=== PATIENT | female | born 1945 | race Caucasian/White ===

== ENCOUNTER → 2018-10-12 09:23 | Outpatient (CLI) | payer MEDICARE, SELFPAY ==
--- NOTE | 2018-10-12 | DI.US.S_ITS ---
PROCEDURE: US THYROID INDICATIONS: NONTOXIC MULTINODULAR GOITER TECHNIQUE: Real-time scanning was performed of the thyroid gland, with image documentation. COMPARISON: [facility], US, BIOPSY LOCALIZATION/ASPIRATION, 05/02/2013, 14:32. [facility], US, BIOPSY LOCALIZATION/ASPIRATION, 05/02/2013, 15:06. [facility], US, THYROID, 02/11/2016, 11:14. [facility], [place], THYROID, 03/09/2017, 10:28. FINDINGS: Right: Thyroid lobe measures 6.1 x 3.3 x 2.7 cm, and is diffusely heterogeneous in echotexture. Left: Thyroid lobe measures 6.2 x 2.5 x 1.9 cm, and is diffusely heterogeneous in echotexture. Isthmus: 0.6 cm thick. Nodule number: 1 Location: Mid right thyroid lobe Size: 1.9 x 0.5 x 1.1 cm. This was likely present on the prior studies but is slightly more defined on the current study. Composition: Solid Echogenicity: Isoechoic Shape: Wider than tall. Margins: Smooth Echogenic foci: None. Total points: 3 ACR TI-RADS category: 3: Mildly suspicious. Nodule number: 2 Location: Inferior right lobe Size: 2.9 x 2.0 x 2.4 cm. stable in size. Composition: Solid Echogenicity: Isoechoic Shape: Wider than tall. Margins: Smooth. Echogenic foci: None. Total points: 3 ACR TI-RADS category: 3: Mildly suspicious. This was previously biopsied with benign findings. Nodule number: 3 Location: Superior right lobe. Size: 1.5 x 0.9 x 1.2 cm. Composition: Cystic and solid Echogenicity: Isoechoic Shape: Wider than tall Margins: Smooth Echogenic foci: None. Total points: 2 ACR TI-RADS category: 2: Not suspicious. Nodule number: 4 at Location: Superior left lobe Size: 1.6 x 1.0 x 1.0 cm. similar in size to the prior study. Composition: Solid Echogenicity: Isoechoic Shape: Wider than tall. Margins: Smooth Echogenic foci: None. Total points: 3 ACR TI-RADS category: 3: Mildly suspicious. 2 additional stable left thyroid nodules also demonstrated consistent with TI-RADS 3 and 2. IMPRESSION: 1. Bilateral heterogeneous enlarged thyroid with multiple nodules consistent with multinodular goiter. 2. Overall stable appearance of the bilateral nodules compared to the prior studies including the 2 previously biopsied nodules on each side. A right midpole nodule is slightly more defined on the current study but was likely present on the prior studies. Followup may be performed to demonstrate five-year stability. ACR TI-RADS definitions and recommendations: TI-RADS 1 (benign): 0 points. FNA not needed. TI-RADS 2 (not suspicious): 2 points. FNA not needed. TI-RADS 3 (mildly suspicious): 3 points. * FNA if 2.5 cm or larger, follow up if 1.5 cm or larger (at 1, 3, and 5 years). TI-RADS 4 (moderately suspicious): 4-6 points. * FNA if 1.5 cm or larger, follow up if 1 cm or larger (at 1, 2, 3, and 5 years). TI-RADS 5 (highly suspicious): 7 points or more. Dictated by: Cesar Moon M.D. on 10/12/2018 at 17:03 Approved by: Cesar Moon M.D. on 10/12/2018 at 17:16
== END ==
PROVIDERS: PCP Physician Assistant; Visit Provider Internal Medicine Endocrinology, Diabetes & Metabolism
DX: E04.2 Nontoxic multinodular goiter (principal)
CPT/HCPCS: 76536

== ENCOUNTER → 2018-10-23 16:00 | Outpatient (CLI) | payer MEDICARE, SELFPAY ==
[2018-10-23 17:00] LABS: Alanine Aminotransferase 30 IU/L (9-52); Albumin 4.5 g/dL (3.5-5.0); Albumin Globulin Ratio 1.4 (1.0-2.8); Alkaline Phosphatase 95 U/L (38-126); Aspartate Aminotransferase 25 IU/L (14-36); BUN Creatinine Ratio 22.2 (6-22); Bilirubin Total 0.2 mg/dL (0.2-1.3); Blood Urea Nitrogen 20 mg/dL (7-17); Calcium 9.9 mg/dL (8.4-10.2); Carbon Dioxide 25 mmol/L (22-32); Chloride 104 mmol/L (98-107); Estimated Glomerular Filt Rate > 60.0 mL/min (>60); Globulin 3.3 g/dL (1.7-4.1); Glucose 97 mg/dL (80-110); HEMOLYSIS < 15 (0-50); Potassium 4.5 mmol/L (3.4-5.1); Sodium 141 mmol/L (137-145); Total Protein 7.8 g/dL (6.3-8.2)
[2018-10-25 15:39] LABS: Parathyroid Hormone Int 71 pg/mL (14-64)
[2018-10-25 15:58] LABS: Ionized Calcium 5.2 mg/dL (4.8-5.6)
== END ==
PROVIDERS: PCP Physician Assistant; Visit Provider Physician Assistant
DX: E83.52 Hypercalcemia (principal)
CPT/HCPCS: 36415; 80053; 82330; 83970

== ENCOUNTER 2021-06-19 12:27 | Emergency (ER) | payer MEDICARE, SELFPAY ==
[2021-06-19 12:43] VITALS: BP 189/79; PULSE 67; RESP 18; O2SAT 97; BMI 28.3
--- NOTE | 2021-06-19 12:49 | DI.RAD.S_ITS ---
PROCEDURE: XR WRIST LT MIN 3V INDICATIONS: FOOSH, left volar wrist pain TECHNIQUE: 4 views of the wrist were acquired. COMPARISON: None. FINDINGS: Bones: There is a mildly impacted, comminuted fracture of the distal radius. There is slight ventral angulation of the dorsal fragment. Fracture lucencies do appear to extend to the articular surface. Scaphoid view: No visualized scaphoid fracture. Soft tissues: No suspicious soft tissue calcifications. IMPRESSION: Mildly impacted distal radial fracture with angulation as above. Dictated by: Denise Munoz M.D. on 06/19/2021 at 13:15 Approved by: Denise Munoz M.D. on 06/19/2021 at 13:15
--- NOTE | 2021-06-19 12:52 | ED_ITS ---
HPI - Extremity Injury (Upper) <CLIFFORD Jeffers - Last Filed: 06/19/21 16:36> General Chief Complaint: Extremity Injury, Upper Stated Complaint: Fall, Left Wrist Injury Time Seen by Provider: 06/19/21 12:33 Source: patient Mode of arrival: Ambulatory Limitations: no limitations History of Present Illness HPI narrative: 76-year-old right-handed female presents to the ED for left wrist pain after tripping on carpet and falling with outstretched hand at approximately at 12:00 p.m. today. She complains of pain mostly with flexion, no deformity, she denies hitting her head or any other injury. She does not endorse slight weakness with flexion of her wrist, extension is not as painful. She has been icing her wrist, has not taken any pain medication yet, reports this pain is an 8/10 and her son is here to drive her. She denies having any medical problems and only takes lisinopril for her blood pressure. Related Data Home Medications Medication Instructions Recorded Confirmed Lisinopril/HCTZ (PRINZIDE /.5) #0 05/12/13 aspirin 325 mg tablet #0 05/12/13 estradiol 10 mcg vaginal tablet #0 05/12/13 (Vagifem) fluticasone propionate 50 #0 05/12/13 mcg/actuation nasal spray,suspension Previous Rx's Medication Instructions Recorded hydrocodone 5 mg-acetaminophen 325 1 tab PO BID PRN #10 tab 06/19/21 mg tablet Allergies Allergy/AdvReac Type Severity Reaction Status Date / Time Sulfa (Sulfonamide Allergy Verified 06/19/21 12:43 Antibiotics) Review of Systems <CLIFFORD Jeffers - Last Filed: 06/19/21 16:36> Review of Systems Narrative: General: denies fever, chills Head/Neck: denies headache, neck pain Eyes: denies visual changes, eye pain Cardio: denies chest pain, palpitations Respiratory: denies shortness of breath, cough GI: denies abdominal pain, nausea, vomiting, or diarrhea : denies dysuria, hematuria MSK: Complains of left wrist pain with slight muscle weakness when flexing her wrist Skin: denies rash, itching Neuro: denies numbness, tingling Patient History <CLIFFORD Jeffers - Last Filed: 06/19/21 16:36> Social History Smoking Status: Never smoker Smoking Status: Never smoker Substance Use Type: does not use Exam <CLIFFORD Jeffers - Last Filed: 06/19/21 16:36> Narrative Exam Narrative: Independently reviewed vitals signs and nursing notes. General: Awake, alert, nontoxic, no cardiorespiratory distress Head/Neck: Atraumatic, neck full range of motion Eyes: EOMI, conjunctiva normal Nose: nares patent, no rhinorrhea Mouth/Throat: moist mucus membranes, posterior pharynx normal, no oral lesions Cardio: Regular rate and rhythm, no peripheral edema Respiratory: respirations unlabored without wheezing, stridor, or rales. No retractions. GI: Abdomen soft, nontender MSK: Moves all extremities, neurovascularly intact, left wrist w/o snuffbox tenderness, denies ulnar tenderness, complains of point tenderness at the distal radius, hand is cold (currently being iced), denies sensation change distally, capillary refill <2 seconds to all fingers. Skin: Normal capillary refill, no rash, mild edema to left dorsal wrist Neuro: Normal speech and cognition, normal gait Initial Vital Signs Initial Vital Signs: Vital Signs Pulse Rate 67 06/19/21 12:43 Respiratory Rate 18 06/19/21 12:43 Blood Pressure 189/79 H 06/19/21 12:43 Pulse Oximetry 97 06/19/21 12:43 <Zechariah Vang DO - Last Filed: 06/19/21 16:48> Initial Vital Signs Initial Vital Signs: Vital Signs Pulse Rate 67 06/19/21 12:43 Respiratory Rate 18 06/19/21 12:43 Blood Pressure 189/79 H 06/19/21 12:43 Pulse Oximetry 97 06/19/21 12:43 Procedures <CLIFFORD Jeffers - Last Filed: 06/19/21 16:36> Orthopedic Splinting/Casting Injury #1: Side: left Upper Extremity Injury Location: wrist Upper Extremity Immobilizer: sugar tong splint Other Orthopedic Equipment: other (sling) Post splinting neuro exam: intact Post splinting vascular exam: intact Placed by: Provider Additional Comments: Wrapped left arm in undercast padding, and splinted with 3 Orthocast. CMS intact distally, wrapped with irineo bandage, capillary refill < 2 seconds, no color change, pink fingers, no numbness or tingling. Course <CLIFFORD Jeffers - Last Filed: 06/19/21 16:36> Orders Ordered: ED Orders 06/19/21 12:49 XR wrist LT min 3V Stat 06/19/21 13:13 XR forearm LT 2V Stat Discontinued Medications Hydrocodone Bitart/Acetaminophen (Hydrocodone/Acet 5/325 Tablet) 1 tab PO NOW ONE Stop: 06/19/21 12:51 Last Admin: 06/19/21 13:11 Dose: 1 tab Documented by: PALLAVI Ibuprofen (Ibuprofen 400 Mg Tablet) 600 mg PO NOW ONE Stop: 06/19/21 12:51 Last Admin: 06/19/21 13:11 Dose: 600 mg Documented by: PALLAVI Vital Signs Vital signs: Vital Signs - 8 hr 06/19/21 12:43 Pulse Rate 67 Respiratory Rate 18 Blood Pressure 189/79 H Pulse Oximetry 97 <Zechariah Vang DO - Last Filed: 06/19/21 16:48> Orders Ordered: ED Orders 06/19/21 12:49 XR wrist LT min 3V Stat 06/19/21 13:13 XR forearm LT 2V Stat Discontinued Medications Hydrocodone Bitart/Acetaminophen (Hydrocodone/Acet 5/325 Tablet) 1 tab PO NOW ONE Stop: 06/19/21 12:51 Last Admin: 06/19/21 13:11 Dose: 1 tab Documented by: PALLAVI Ibuprofen (Ibuprofen 400 Mg Tablet) 600 mg PO NOW ONE Stop: 06/19/21 12:51 Last Admin: 06/19/21 13:11 Dose: 600 mg Documented by: PALLAVI Vital Signs Vital signs: Vital Signs - 8 hr 06/19/21 12:43 Pulse Rate 67 Respiratory Rate 18 Blood Pressure 189/79 H Pulse Oximetry 97 MDM - Extremity Injury (Upper) <CLIFFORD Jeffers - Last Filed: 06/19/21 16:36> Imaging Data Extremity x-ray #1: Radiologist's Impression: PROCEDURE:? XR WRIST LT MIN 3V ? INDICATIONS: FOOSH, left volar wrist pain ? TECHNIQUE:? 4 views of the wrist were acquired.? ? COMPARISON:? None. ? FINDINGS:? ? Bones:? There is a mildly impacted, comminuted fracture of the distal radius.? There is slight ventral angulation of the dorsal fragment.? Fracture lucencies do appear to extend to the articular surface. ? Scaphoid view:? No visualized scaphoid fracture. ? Soft tissues:? No suspicious soft tissue calcifications.? ? IMPRESSION:? Mildly impacted distal radial fracture with angulation as above. ? ? Dictated by: Denise Munoz M.D. on 06/19/2021 at 13:15 ? ? Approved by: Denise Munoz M.D. on 06/19/2021 at 13:15 ? Extremity x-ray #2: Radiologist's Impression: PROCEDURE:? XR FOREARM LT 2V ? INDICATIONS:? pain, fall ? TECHNIQUE:? 2 views of the forearm were acquired.? ? COMPARISON:? [facility], CR, XR WRIST LT MIN 3V, 06/19/2021, 12:57. ? FINDINGS:? ? Bones:? There is no impacted, comminuted distal radial fracture.? Fracture lucencies extend into the articular surface.? There is mild ventral angulation of distal fragments. ? Soft tissues:? No suspicious soft tissue calcifications or masses.? ? ? IMPRESSION:? Impacted comminuted distal radial fracture. ? ? ? Dictated by: Denise Munoz M.D. on 06/19/2021 at 13:42 ? ? Approved by: Denise Munoz M.D. on 06/19/2021 at 13:43 ? MDM Narrative Medical decision making narrative: 76-year-old right-handed female presents to the ED for left wrist pain after tripping on carpet and falling with outstretched hand at approximately at 12:00 p.m. today. Patient has a left mildly impacted, comminuted fracture of the distal radius, with slight ventral angulation per Radiology read. Patient's left arm was splinted in a sugar-tong splint. She has full sensation, capillary refill, range of motion of her fingers. She was placed in a sling and instructed to remove the sling multiple times during the day. Patient is appropriate and amenable to discharge home. Vital signs are stable on repeat examination is unremarkable. Patient has been informed of results. Patient has been given strict return to ER precautions for any new or worsening symptoms. Patient understands to follow up closely with outpatient providers as instructed. Patient understands plan and agrees to discharge home. All questions and concerns answered at this time. Discharge Plan Departure Patient Disposition: Home Clinical Impression: Distal radius fracture, left Qualifiers: Encounter type: initial encounter Fracture type: closed Fracture morphology: unspecified fracture morphology Qualified Code(s): S52.502A - Unspecified fracture of the lower end of left radius, initial encounter for closed fracture Injury of wrist, left Qualifiers: Encounter type: initial encounter Qualified Code(s): S69.92XA - Unspecified in jury of left wrist, hand and finger(s), initial encounter Instructions: DI for Distal Radius Fracture Activity Restrictions/Additional Instructions: *You have been diagnosed with a distal radius fracture. Continue to ice your risk every few hours to help with swelling, use ibuprofen or Advil 600 mg every 6 hours for pain. In addition have called a prescription in to [facility] [place]. Take 1 hydrocodone every 4-6 hours as needed for pain. Please follow-up with Dr. Lei at [facility] in 1 week. Office number is listed below. If the Irineo bandage becomes too tight, you may loosen but do not move your wrist at all. Try to keep the splint dry with showering. *What to do: *Please continue to take your regular medications as directed. [x ] New medication prescriptions sent to your pharmacy: [facility] [ ] New medication written as a paper prescription [ ] No new medications given *Please follow up with your primary care provider in 2-3 days, call for an appointment. Let them know you were seen in the Emergency Department and that we ask that you be seen in follow up. We will electronically transmit a record of today's note if your PCP is in our system *If you do not have a primary care provider please contact the [facility] Resource line at [phone]. They will ask some questions about your medical history and help get you set up with a doctor in the community. *Return to Emergency Department if you should have any new, worsening or concerning symptoms, such as [fever greater than 101F, chills, worsening pain, persistent vomiting or other bothersome symptoms] Prescriptions: New hydrocodone-acetaminophen 5-325 mg tablet 1 tab PO BID PRN (Reason: pain) Qty: 10 RF: 0 No Action fluticasone propionate 16 GM spray,suspension Qty: 0 RF: 0 aspirin 325 MG tablet Qty: 0 RF: 0 estradiol [Vagifem] 10 MCG tablet Qty: 0 RF: 0 Lisinopril/HCTZ (PRINZIDE 07/21.5) Qty: 0 RF: 0 Referrals: Cindi Malcolm PA-C [Primary Care Provider] - Juve Lei MD [Physician] - (Distal Radius fracture on 06/19) <Zechariah Vang DO - Last Filed: 06/19/21 16:48> [facility] Dr Vang Co-Sign Statement: I was available for consultation during this patient's emergency department visit. This chart is signed by myself for administrative purposes only. I did not have direct contact with this patient during this visit. They were seen independently by the APC.
[2021-06-19] MEDS: HYDROCODONE/ACET 5/325 TABLET 1 TAB PO (13:11)
[2021-06-19] MEDS: IBUPROFEN 400 MG TABLET 600 MG PO (13:11)
--- NOTE | 2021-06-19 13:13 | DI.RAD.S_ITS ---
PROCEDURE: XR FOREARM LT 2V INDICATIONS: pain, fall TECHNIQUE: 2 views of the forearm were acquired. COMPARISON: [facility], CR, XR WRIST LT MIN 3V, 06/19/2021, 12:57. FINDINGS: Bones: There is no impacted, comminuted distal radial fracture. Fracture lucencies extend into the articular surface. There is mild ventral angulation of distal fragments. Soft tissues: No suspicious soft tissue calcifications or masses. IMPRESSION: Impacted comminuted distal radial fracture. Dictated by: Denise Munoz M.D. on 06/19/2021 at 13:42 Approved by: Denise Munoz M.D. on 06/19/2021 at 13:43
== END 2021-06-19 14:47 | disposition home or self-care (01) ==
PROVIDERS: Emergency Provider Nurse Practitioner Critical Care Medicine; PCP Physician Assistant
DX: S52.502A Unspecified fracture of the lower end of left radius, initial encounter for closed fracture (principal); W19.XXXA Unspecified fall, initial encounter
CPT/HCPCS: 29125; 73090; 73110; 99283; 99284

== ENCOUNTER → 2022-05-05 10:17 | Outpatient (CLI) | payer MEDICARE, SELFPAY | PROVIDERS: PCP Physician Assistant | DX: Z13.820 Encounter for screening for osteoporosis (principal); M81.0 Age-related osteoporosis without current pathological fracture; M85.80 Other specified disorders of bone density and structure, unspecified site ==

== ENCOUNTER → 2022-05-13 10:08 | Outpatient (CLI) | payer MEDICARE, SELFPAY | PROVIDERS: PCP Physician Assistant; Referring Provider Physician Assistant; Visit Provider Physician Assistant | DX: M81.0 Age-related osteoporosis without current pathological fracture (principal); Z13.820 Encounter for screening for osteoporosis; Z78.0 Asymptomatic menopausal state; Z90.710 Acquired absence of both cervix and uterus | CPT/HCPCS: 77080 ==